=== PATIENT | female | born 1965 | race Caucasian/White ===

== ENCOUNTER → 2017-11-20 | Outpatient (CLI) | payer OTHER | END | disposition home or self-care (01) | LOC: C.RDSM 13:53 | PROVIDERS: ATTEND Physical Medicine & Rehabilitation | DX: M25.561 Pain in right knee (principal) ==

== ENCOUNTER 2019-08-04 04:53 | Inpatient (IN) ==
--- NOTE | 2019-07-09 13:35 | Anesthesiology Consultation ---
Date of Service July 09, 2019 Assessment & Plan (1) Encounter for pre-operative examination: Discussed SAB vs. GA: Per patient, she states she was advised by surgeon office against SAB if possible due to her back issues. Discussed SAB vs. GA and that anesthesia would discuss further AM DOS* Chart Review Chart Review: Acceptable Risk for Surgery (pending surgeon-ordered PCP clearance (Dr. Galvez)) and Patient seen in Pre Admission Testing Teaching & Discussion Pre-Anesthesia Teaching/Discussion Notes: Instructed NPO after midnight before surgery,except medications with 15 cc of water. Medication instructions provided according to the PAT guidelines. History Surgery Operation Date: 08/04/19 10:20 Proposed Procedures p Right Total Knee Arthroplasty - Jose L Zarco MD Height/Weight Height: 5 ft 7 in Weight: 85.8 kg Allergies Allergy/AdvReac Type Severity Reaction Status Date / Time vaccine adjuvant system, AdvReac Severe Flu-like Verified 07/05/19 14:40 [id number] liposomal symptoms [From Shingrix (PF)] varicella-zoster virus AdvReac Severe Flu-like Verified 07/05/19 14:40 glycoprotein E, recombinant symptoms [From Shingrix (PF)] Medications Home Medications Medication Instructions Recorded Confirmed Last Taken hydrocodone-acetaminophen 1 tab PO Q6H PRN 05/28/19 07/05/19 Unknown pregabalin [Lyrica] 200 mg PO TID 05/28/19 07/05/19 Unknown tizanidine 8 mg PO HS 05/28/19 07/05/19 Unknown calcium carbonate-vitamin D3 1 cap PO QAM 07/05/19 07/05/19 Unknown [Calcium 600 + D(3)] gabapentin 400 mg PO TID 07/05/19 07/05/19 Unknown multivitamin 1 tab PO QAM 07/05/19 07/05/19 Unknown vitamin B complex 1 tab PO QAM 07/05/19 07/05/19 Unknown Past Medical History Medical History Herniated disc cervical, thoracic region Anxiety Chronic back pain DJD (degenerative joint disease) Degenerative disc disease Fibromyalgia Neuropathy legs, hands + leg weakness (improving) + difficulty with grasp strength Wheelchair dependence since 04/2019 fall 2/2 knee pain/DDD (reason for upcoming procedure) Exercise / Class Metabolic Activity IV < 2 Limit ADL/Bedbound (primarily wheelchair bound (able to do short distances with walker at PT) since 04/2019 fall/knee pain/DDD/LE neuropathy ) Past Family History Family History Other Family history non-contributory Past Surgical History Surgical History H/O LEEP History of carpal tunnel surgery of right wrist History of tonsillectomy Hx of oral surgery Past Anesthesia History No Hx of Anesthesia Complications and No Family Hx of Anesthesia Complications History of PONV No Hx of PONV and Hx of Motion Sickness (remote hx) Social History Smoking Status: Current every day smoker tobacco type: cigarettes Smoking cigarettes per day: 10 cigarettes/day x 30 years Do You Dip or Chew Tobacco: No Hx Alcohol Use: Yes Alcohol type: wine alcohol intake frequency: a few times a week Hx Substance Use: Yes substance use type: prescription drug (chronic opioid use x 15+ years ) Review of Systems Patient denies chest pain, shortness of breath, cough, wheezing, palpitations. Physical Exam Vital Signs VITALS BP 125/85 P 72 TEMP 98.1 SP02 98%RA RESP 20 PHYSICAL Full neck and c-spine range of motion. Full TMJ range of motion. TMD 2.5 finger breaths Mallampati Score 3 (small oral opening) Dentition: intact, several crowns, upper front veneers Lungs: clear throughout to auscultation Cardiac: regular rate and rhythm, no murmurs noted Spine: normal Carotid arteries: negative bruit Extremities: no edema Short, thick neck Testing Laboratory Results 07/09/19 14:00 07/09/19 14:00 PT 10.3 Seconds (9.0-12.0) 07/09/19 14:00 INR 1.0 (0.9-1.1) 07/09/19 14:00 APTT 23.7 Seconds (21.0-31.0) 07/09/19 14:00 Urine Color Yellow 07/09/19 14:00 Urine Appearance Clear (Clear) 07/09/19 14:00 Urine pH 5.5 (4.5-7.5) 07/09/19 14:00 Ur Specific [place] 1.012 (1.000-1.030) 07/09/19 14:00 Urine Protein Negative (Negative) 07/09/19 14:00 Urine Glucose (UA) Negative (Negative) 07/09/19 14:00 Urine Ketones Negative (Negative) 07/09/19 14:00 Urine Nitrite Negative (Negative) 07/09/19 14:00 Ur Leukocyte Esterase Negative (Negative) 07/09/19 14:00 Urine WBC (Auto) 1-5 /hpf (0-5) 07/09/19 14:00 Urine RBC (Auto) 0-4 /hpf (0-4) 07/09/19 14:00 U Hyaline Cast (Auto) 0 /lpf (0-5) 07/09/19 14:00 U Epithel Cells (Auto) 20-30 /lpf (0-5) H 07/09/19 14:00 Urine Bacteria (Auto) Negative (Negative) 07/09/19 14:00 Blood Type A Negative 07/09/19 14:00 Antibody Screen NEGATIVE 07/09/19 14:00 Electrocardiogram Date: 05/13/19 NSR with sinus arrhythmia at 87bpm. NS STA. Chest X-Ray Date: 07/09/19 The heart is borderline enlarged. There is no failure. There is no focal pulmonary consolidation. There are no pleural effusions. Indistinctness of chronic border remains unchanged the prior study. This is felt to be secondary to a fat pad. No active disease in the chest.
--- NOTE | 2019-07-09 14:25 | XRay Report ---
XR chest Pre-admission PA/Lat CLINICAL HISTORY: Preoperative chest COMPARISON STUDY: 10/29/2019 FINDINGS: The heart is borderline enlarged. There is no failure. There is no focal pulmonary consolid ation. There are no pleural effusions. Indistinctness of chronic border remains unchanged the prior s tudy. This is felt to be secondary to a fat pad.[ IMPRESSION: No active disease in the chest. Electronically signed by: Eligio Naylor M.D. 07/09/2019 2:24 PM
[2019-07-09 16:35] LABS: Basophils # (auto) 0.03 K/uL (0-0.2); Basophils % (auto) 0.4 %; Eosinophils # (auto) 0.25 K/uL (0-0.5); Eosinophils % (auto) 3.3 %; Hematocrit (blood only) 49.5 % (37-47); Immature Granulocytes # (auto) 0.02 K/uL (0.00-0.02); Immature Granulocytes % (auto) 0.3 %; Lymphocytes # (auto) 2.94 K/uL (1.2-3.4); Lymphocytes % (auto) 39.4 %; Mean Corpuscular Hemoglobin 31.3 pg (25-34); Mean Corpuscular Hgb Conc 32.3 g/dL (32-36); Mean Corpuscular Volume 96.9 fL (80-100); Mean Platelet Volume 11.4 fL (7.4-10.4); Monocytes # (auto) 0.35 K/uL (0.11-0.59); Monocytes % (auto) 4.7 %; Neutrophils # (auto) 3.88 K/uL (1.4-6.5); Neutrophils % (auto) 51.9 %; Platelet Count 198 K/uL (130-400); RDW Coefficient of Variation 14.8 % (11.5-14.5); RDW Standard Deviation 51.8 fL (36.4-46.3); Red Blood Count 5.11 M/uL (4.2-5.4); White Blood Count 7.47 K/uL (4.8-10.8)
[2019-07-09 16:38] LABS: Appearance Urine Clear (Clear); Bacteria Urine Automated Negative (Negative); Bilirubin Urine Negative (Negative); Blood Urine Trace (Negative); Cast Urine Automated 0 /lpf (0-5); Color Urine Yellow; Epithelial Cell Urine Auto 20-30 /lpf (0-5); Glucose Urine UA Negative (Negative); Ketones Urine Negative (Negative); Leukocyte Esterase Urine Negative (Negative); Nitrite Urine Negative (Negative); Protein Urine Negative (Negative); RBC Urine Automated 0-4 /hpf (0-4); Specific Gravity Urine 1.012 (1.000-1.030); Urobilinogen Urine Negative (Negative); pH Urine 5.5 (4.5-7.5)
[2019-07-09 16:49] LABS: BUN Creatinine Ratio 11.9 (10-20); Calcium 8.9 mg/dl (8.5-10.1); Creatinine Clr Calc Pharmacy 114.9 ml/min; Est GFR (African American) 117.9; Est GFR (Non-African American) 101.7; Potassium 3.9 mmol/L (3.5-5.1)
[2019-07-09 16:51] LABS: Partial Thromboplastin Ratio 0.9; Partial Thromboplastin Time 23.7 Seconds (21.0-31.0); Prothrombin Time 10.3 Seconds (9.0-12.0)
--- NOTE | 2019-07-12 16:27 | History and Physical Report ---
DATE OF ADMISSION: 08/04/2019 CHIEF COMPLAINT: Right knee pain. HISTORY OF PRESENT ILLNESS: This 53-year-old white female presents to the office with complaints of a longstanding history of right knee pain. It is ongoing for more than a year. Pain has become worse over the last several months. No specific trauma. Worse with weightbearing. It is affecting her ADLs. She has tried activity modification as well as physical therapy and oral pain medication without lasting improvement. She elects to proceed with right total knee arthroplasty in hopes of alleviating her pain. Preoperative imaging has been obtained. She denies any effusions. She does have bilateral lower extremity numbness and tingling as a baseline and states she has been diagnosed with peripheral neuropathy. PAST MEDICAL HISTORY: Significant for chronic back pain, osteoarthritis, chronic pain syndrome, cervical radiculopathy, peripheral neuropathy, history of bronchitis, fibromyalgia, herniated disc, and history of tobacco abuse, hypothyroidism. PAST SURGICAL HISTORY: Tonsillectomy with adenoidectomy, oral surgery, LEEP 1997, right wrist carpal tunnel release 05/18/2019. ALLERGIES: KNOWN ALLERGY TO BENADRYL AND SUDAFED. FAMILY HISTORY: Significant for breast cancer, heart disease and hypertension. Father is . SOCIAL HISTORY: The patient is single. Lives by herself. Positive tobacco use, occasional ETOH use. CURRENT MEDICATIONS: Multivitamin daily, loratadine 10 mg daily, diclofenac gel q.i.d. p.r.n., Os-Francisco 1 tablet p.o. b.i.d., vitamin D3 2000 international units 2 tablets daily, tizanidine 4 mg p.o. t.i.d., gabapentin 400 mg p.o. t.i.d., Vicodin 10/325 mg q.6 hours p.r.n., Xanax 0.25 mg p.o. t.i.d., Lyrica 200 mg p.o. t.i.d., albuterol inhaler 2 puffs q.4 hours p.r.n., hydroquinone 4% topical cream b.i.d. p.r.n., lidocaine 5% patches daily, Synthroid 25 mcg p.o. daily. REVIEW OF SYSTEMS: A total of 10 systems are reviewed and are significant only for above stated conditions. PHYSICAL EXAMINATION: GENERAL: Well-developed, well-nourished middle aged white female in no acute distress. Sitting in a wheelchair. VITAL SIGNS: Weight 86.3, BP 136/76, pulse 81, O2 sat 94% on room air, temperature 36.6 oral. SKIN: Warm and dry with good turgor. No rashes or lesions noted. Hands are a bit dirty today. No ecchymosis or erythema. No intraarticular effusion. HEENT: Normocephalic, atraumatic. Eyes PERRLA, EOMI. Nares patent bilaterally without turbinate enlargement. Oropharynx without erythema or exudate. No lesions noted. Uvula midline. Oral mucosa moist. Fair dentition. Dental caps and fillings are noted. HEART: RRR. No MGR. LUNGS: Clear to auscultation bilaterally. No crackles, rhonchi or wheezing. Good air movement. ABDOMEN: Obese. Bowel sounds present x4, soft, nontender. No organomegaly. No masses. MUSCULOSKELETAL: Right knee evaluation reveals no intra-articular effusion. Full terminal extension. Flexion to greater than 100 degrees. Strength is 5/5 with fair quad tone. She has focal discomfort with palpation over the medial and lateral joint lines. No palpable crepitus. Stable collateral ligaments. No defect in the patellar tendon or quadriceps tendon. The patient has pain with standing. NEUROLOGIC: Decreased subjective sensation with light touch across both lower extremities. Sensation is intact, however. Cranial nerves II-XII are intact. Peripheral pulses are 2+. DATA: Radiographic imaging previously obtained shows significant DJD of both knees, right greater than left. Joint space narrowing, periarticular osteophytes, and subchondral sclerosis are all present. IMPRESSION: Right knee degenerative joint disease. PLAN: Postoperative prescriptions for Percocet and Coumadin will be provided at discharge from the hospital. Anticipate discharge to either [facility] or [facility] facility, given her care needs and that she lives alone. The patient already has a walker and cane. She also has a wheelchair. Preoperative lab work, and chest x-ray were ordered today. EKG should be up to date from her previous wrist surgery. She will obtain medical clearance from Dr. Galvez. [facility]US[facility]
[~2019-08-04 04:53] MED LIST: CEFAZOLIN 2000MG 2,000 MG/15 ML SYR IV SCH; LACTATED RINGER'S 1,000 ML IV SCH
[2019-08-04] MEDS ORDERED: LR 60ML/HR IV SCH (06:00)
[2019-08-04] MEDS ORDERED: LR 500ML BOLUS, THEN 15ML/HR IV SCH (06:00)
[2019-08-04] MEDS ORDERED: CEFAZOLIN 2000MG 2,000 MG/15 ML SYR IV SCH (06:00)
[2019-08-04] MEDS ORDERED: TRANEXAMIC ACID 1,000 MG **IV Pre-op IV SCH (06:00)
[2019-08-04] MEDS ORDERED: ROPIVACAINE 0.5% HCL/PF 150 MG, BUPIVACAINE 0.5% MPF 30 ML, EPINEPHrine 0.15 MG, Ketoro... INFIL SCH (06:00)
[2019-08-04 06:01] LABS: Pregnancy Test, Serum Negative (Negative)
[2019-08-04] MEDS ORDERED: BUPIVACAINE 0.5 % 5 MG/1 ML PF 10ML VIAL ONE (06:31)
[2019-08-04] MEDS ORDERED: ROPIVACAINE 0.5% 5 MG/ML 30 ML VIAL ONE (06:31)
[2019-08-04] MEDS ORDERED: ORTHO JOINT ANESTHETIC ONE (06:32)
--- NOTE | 2019-08-04 06:35 | History & Physical Bridge Note ---
Date of Service August 04, 2019 History & Physical Bridge Note I have examined the patient, reviewed the History & Physical and in the interval since the performance of the History & Physical I have noted the following changes of clinical significance:consent obtained. no changes noted
[2019-08-04] MEDS ORDERED: fentaNYL citrate 100 MCG/2 ML VIAL ONE ×2 (06:40→06:47)
[2019-08-04] MEDS ORDERED: MIDAZOLAM HCL 1 MG/ML 2ML VIAL ONE ×2 (06:40→06:41)
[2019-08-04] MEDS ORDERED: LABETALOL HCL IV 5 MG/ML 20ML IV PRN (07:08)
[2019-08-04] MEDS ORDERED: PROMETHAZINE HCL 12.5 MG in SODIUM CHLORIDE 0.9% 50 ML IV PRN (07:08)
[2019-08-04] MEDS ORDERED: ONDANSETRON INJ 2 MG/ML 2 ML VIAL IV PRN ×2 (07:08→10:06)
[2019-08-04] MEDS ORDERED: ATROPINE SULFATE 0.1 MG/ML 10ML SYR IV PRN (07:08)
[2019-08-04] MEDS ORDERED: KETOROLAC 30 MG/ML VIAL IV PRN (07:08)
[2019-08-04] MEDS ORDERED: HYDROmorphone INJ 2 MG/ML SYR/VIAL ONE (07:14)
[2019-08-04] MEDS ORDERED: KETAMINE HCL INJ 50 MG/ML 10 ML VIAL ONE (07:24)
[2019-08-04] MEDS ORDERED: LIDOCAINE HCL 2% 2 ML VIAL/AMP(20MG/ML) INFIL ONE (07:41)
[2019-08-04] MEDS ORDERED: PROPOFOL IV EMULSION 10 MG/ML 20 ML VIAL IV ONE (07:41)
[2019-08-04] MEDS ORDERED: KETOROLAC 30 MG/ML VIAL ONE (07:41)
[2019-08-04] MEDS ORDERED: ROCURONIUM BROMIDE 10 MG/ML 5 ML VIAL ONE (07:41)
[2019-08-04] MEDS ORDERED: NEOSTIGMINE METHYLSULFATE 5 MG/5 ML SYR ONE (07:42)
[2019-08-04] MEDS ORDERED: GLYCOPYRROLATE 0.2 MG/ML VIAL ONE (07:42)
--- NOTE | 2019-08-04 08:15 | Post Operative Brief Note ---
Immediate Post Op Note v1 Date of Surgery August 04, 2019 Pre & Post Diagnosis Operation Date: 08/04/19 07:00 Pre-Op Diagnosis: Right Knee Degenerative Joint Disease Post-Op Diagnosis: Right Knee Degenerative Joint Disease Procedure Operation Date: 08/04/19 07:00 Actual Procedures p Right Total Knee Arthroplasty(Right) - Jsoe L Zarco MD Surgeon Jose L Zarco MD Telephone Order Clerk charisse/sis Estimated Blood Loss 25 Findings Consistent with Post-Op Diagnosis
--- NOTE | 2019-08-04 08:26 | Operative Report ---
Post Operative Report Pre & Post Diagnosis Operation Date: 08/04/19 07:00 Pre-Op Diagnosis: Right Knee Degenerative Joint Disease Post-Op Diagnosis: Right Knee Degenerative Joint Disease Procedure Operation Date: 08/04/19 07:00 Actual Procedures Right Total Knee Arthroplasty(Right) - Jose L Zarco MD Surgeon SHAWN Zarco MD Goal Umpire charisse/sis Estimated Blood Loss 25 Findings Consistent with Post-Op Diagnosis Specimens see operative report Drains none Complications none Disposition Accompanied Patient To Recovery: Yes Disposition: Recovery Room Indications This 53-year-old white female presented to the office with complaints of intractable right knee pain. She had tried conservative care measures including activity modification and oral pain medication without lasting improvement. Preoperative imaging was obtained that showed avascular necrosis. She elected to proceed with surgical intervention after being educated about potential risks and outcomes. Description of Procedure Patient was taken to the operating room where she was given general anesthesia. She was prepped and draped in the usual sterile fashion. Please see Dr. Zarco's operative report for specifics of the procedure. I was present for the entire case from initial patient positioning through final wound closure. Assistance was provided in tissue retraction, hemostasis, trial implant placement, final implant placement, and final wound closure. Patient was taken to the recovery room in satisfactory condition. I attest to the content of the Intraoperative Record and any orders documented therein. Any exceptions are noted below.
--- NOTE | 2019-08-04 08:30 | Operative Report ---
Post Operative Report Pre & Post Diagnosis Operation Date: 08/04/19 07:00 Pre-Op Diagnosis: Right Knee Degenerative Joint Disease Post-Op Diagnosis: Right Knee Degenerative Joint Disease Procedure Operation Date: 08/04/19 07:00 Actual Procedures p Right Total Knee Arthroplasty(Right) - Jose L Zarco MD Surgeon Jose L Zarco MD Supervisor [employer] charisse/sis Estimated Blood Loss 25 Findings Consistent with Post-Op Diagnosis Specimens As per the procedure notes Complications none Disposition Accompanied Patient To Recovery: Yes Disposition: Recovery Room Indications 53 years pleasant woman with end-stage right knee arthritis and avascular necrosis Description of Procedure Supine position. Standard prep and drape. Tourniquet control. Timeout for patient safety. Right total knee arthroplasty. Please see Dr. Zarco's procedure notes for specific details. I was present throughout the case assisted for wound closure and transfer the patient to PACU in stable condition. I attest to the content of the Intraoperative Record and any orders documented therein. Any exceptions are noted below.
--- NOTE | 2019-08-04 08:44 | Operative Report ---
DATE OF OPERATION: 08/04/2019 SURGEON: Jose L Zarco MD. ASSISTANTS: Apoorva and Juan Francisco Chan PA-C. PREOPERATIVE DIAGNOSES: Osteoarthritis, right knee, with avascular necrosis of femur and tibia. POSTOPERATIVE DIAGNOSES: Osteoarthritis, right knee, with avascular necrosis of femur and tibia. OPERATION PERFORMED: Cemented right total knee replacement. PERIOPERATIVE SITUATION: Medically cleared female with multiple comorbidities who was cleared for surgery. She has bilateral knee AVN and bilateral severe patellofemoral arthropathy, wished to proceed with knee replacement. She elected to do the right first. She understands the risk and consequences prior to consent. DESCRIPTION OF PROCEDURE: The patient was appropriately identified, site verified, consent verified. Antibiotics confirmed as being given. The right lower extremity was prepped and draped in usual routine fashion. Midline exposure of the right knee was performed. A parapatellar arthrotomy performed. Synovectomy completed. The patellofemoral joint was grade 4. The knee was flexed. Soft tissue excised. The patella was everted easily. There was a large vertical delamination of articular cartilage of the weightbearing surface of the lateral femoral condyle. Cruciates resected. Menisci resected. Tibia subluxated. Distal femur resected 14 mm. There was a significant AVN noted in the lateral femoral condyle. Proximal tibia resected 4 mm. There was a significant AVN of the tibial plateau medially. The femur was sized to between 3 and 2, was measured 3 and cut 2.5. The tibia was measured to a size 2, the flexion gap and extension gap were excellent. A box cut was then made. The size 2.5 fit well. Tibia was then broached and reamed to a size 2 and a trial spacer with 10 and 12.5 were trialed and the 10 did not eliminate any extension and did not lose any mid range flexion stability. The alignment of the limb was excellent. The patella was resected leaving 15 mm and a size 35 button fit well. Patella tracked well. The knee was then injected with Orthomix both posteriorly and around the knee joint. All trial elements were then removed. The knee was irrigated with Betadine and Pulsavac and then the permanent cemented into position in the following sequence of tibia, femur and patella. After 12 minutes, the tourniquet was deflated. After 14 minutes, the knee was flexed. No cement removal was required. The knee was irrigated with Betadine Pulsavac, permanent liner seated and then the knee closed at 50 degrees of flexion with #2 Vicryl, #1 Vicryl, 2-0 plain and stainless steel clips. Appropriate dressing applied. ESTIMATED BLOOD LOSS: 25 mL. CRYSTALLOID: Per anesthesia. PATHOLOGY: Pending on bone. DEEP VENOUS THROMBOSIS PROPHYLAXIS: With protocol. SUMMARY OF IMPLANTS: Size 2.5 right femur, posterior cruciate substituting size 2 mobile bearing tray tibia, size 2.5 insert x10 PCL substituting matching the femur. Oval domed 3 pegged patella size 35 and 2 bags of Palacos G cement. I attest to the content of the Intraoperative Record and any orders documented therein. Any exception s are noted below.
[2019-08-04] MEDS: HYDROmorphone INJ 1 MG/ML SYRINGE IV PRN ×8 (08:45→09:20)
[2019-08-04] MEDS ORDERED: HYDROmorphone INJ 1 MG/ML SYRINGE ONE (09:09)
--- NOTE | 2019-08-04 09:21 | XRay Report ---
XR knee RT 2V routine CLINICAL HISTORY: Postop examination. Degenerative arthritis. COMPARISON: December 2018 DISCUSSION: There are postsurgical changes of a total right knee arthroplasty and patellar resurfacin g. The femoral and tibial components appear well seated. Overlying skin michael are evident. There is air within the soft tissues consistent with recent surgery. IMPRESSION: Postsurgical changes of a total right knee arthroplasty. Electronically signed by: Eligio Naylor M.D. 08/04/2019 9:20 AM
[2019-08-04] MEDS ORDERED: MAGNESIUM HYDROXIDE SUSP 30 ML UDC PO PRN (10:06)
[2019-08-04] MEDS ORDERED: BISACODYL 10 MG SUPP PR PRN (10:06)
[2019-08-04] MEDS ORDERED: METOCLOPRAMIDE HCL INJ 5 MG/ML 2 ML VIAL IV PRN (10:06)
[2019-08-04] MEDS ORDERED: NALOXONE HCL 0.4 MG/1 ML VIAL/CARP IV PRN (10:06)
[2019-08-04] MEDS ORDERED: HYDROmorphone INJ 0.5 MG/0.5 ML SYR IV PRN (10:06)
[2019-08-04] MEDS ORDERED: ALUMINUM/MAGNESIUM SUSP 30 ML UDC PO PRN (10:06)
[2019-08-04] MEDS ORDERED: DiphenhydrAMINE HCL 50 MG/ML VIAL IV PRN (10:06)
--- NOTE | 2019-08-04 10:06 | Anesthesiology Progress Note ---
Date of Service August 04, 2019 Anesthesia Post Procedure Vital Signs Vital Signs: Temp Pulse Pulse Resp BP Pulse Ox 08/04/19 09:30 89 19 137/79 97 08/04/19 09:20 92 H 20 109/93 95 08/04/19 09:10 92 H 16 157/98 H 94 08/04/19 08:55 97 H 16 167/88 H 93 08/04/19 08:45 101 H 16 168/93 H 94 08/04/19 08:35 99 H 16 162/92 H 95 08/04/19 08:27 36.2 C L 109 H 16 158/101 H 95 08/04/19 05:42 36.9 C 99 H 20 143/88 H 95 Pain Intensity Right Knee: Pain Intensity: 7 Transfer of Care Handoff Completed per policy Notes Mental Status: alert / awake / arousable Patient Amnestic to Procedure: Yes Nausea / Vomiting: adequately controlled Pain: adequately controlled Airway Patency, RR, SpO2: stable & adequate BP & HR: stable & adequate Hydration State: stable & adequate Anesthetic Complications: no major complications apparent
[2019-08-04] MEDS ORDERED: SODIUM CHLORIDE 0.9% 1000ML 1,000 ML IV SCH (10:30)
[2019-08-04] MEDS: NICOTINE 14 MG/24 HR PATCH TD SCH (11:23)
--- NOTE | 2019-08-04 12:20 | Progress Note ---
DATE: 08/04/2019 Postop check status post right total knee replacement. The patient is resting comfortably in bed, was sleeping when I walked in the room. She denies any chest pain, shortness of breath, fever, chills, nausea, vomiting or headache. Vital signs are stable. She is afebrile. Neurovascular check of both lower extremities is baseline. She has sensory neuropathy. Has good motor function. Wound dressing is clean, dry and intact. Postop x-rays look excellent. ASSESSMENT: Overall, doing well. Continue postoperative care pathway. Follow up for potential discharge tomorrow to a facility. She states she wants to go to [facility]. Discussed with Nori in case management. She will see her today.
[2019-08-04] MEDS: OXYCODONE HCL IR 5 MG TAB (IMMEDIATE RELEASE) PO PRN (12:56)
[2019-08-04] MEDS: KETOROLAC 30 MG/ML VIAL IV SCH ×3 (12:57→23:13)
[2019-08-04] MEDS: DOCUSATE SODIUM 100 MG CAP PO SCH ×2 (12:57→22:09)
[2019-08-04] MEDS: GABAPENTIN 400 MG CAP PO SCH ×3 (12:57→21:47)
[2019-08-04] MEDS: MULTIVITAMIN TAB PO SCH (12:58)
--- NOTE | 2019-08-04 13:55 | Discharge Summary ---
CHIEF COMPLAINT: Right knee pain. HISTORY OF PRESENT ILLNESS: The patient underwent elective right total knee replacement. She has a lot of complex issues including social issues. She has also involved in her left lower extremity. She recently had some inpatient stay at [facility] for falling based on neuropathy. With a recent knee replacement, she needs to be considered for that. Her hospital course has been uneventful with respect to the knee replacement. PAST MEDICAL HISTORY: Remarkable for chronic back pain, osteoarthritis, chronic pain syndrome, cervical radiculopathy, peripheral neuropathy, bronchitis, fibromyalgia, tobacco abuse, hypothyroidism. PAST SURGICAL HISTORY: Remarkable for tonsillectomy, oral surgery, LEEP, carpal tunnel release. ALLERGIES: BENADRYL AND SUDAFED. FAMILY HISTORY: Remarkable for breast cancer, heart disease and hypertension. Father is . SOCIAL HISTORY: Reveals that she is single, lives by herself, and uses alcohol and tobacco. PREADMISSION MEDICATIONS: Include multivitamin, loratadine, diclofenac gel, Os-Francisco, vitamin D, tizanidine, gabapentin, Vicodin, Xanax, Lyrica, albuterol inhaler, hydroquinone topical cream, lidocaine patches and Synthroid. She has also been discharged on Coumadin, keep INR 1.8-2.2. P.r.n. pain medication. REVIEW OF SYSTEMS: Noncontributory. HOSPITAL COURSE: Has been uneventful. Her postoperative x-rays look excellent. Her neurovascular check is at baseline. She should be mobilized. She should see case management and get prepared for potential discharge/transfer tomorrow.
[2019-08-04] MEDS: ACETAMINOPHEN 500 MG TAB PO SCH ×2 (13:58→22:11)
[2019-08-04] MEDS ORDERED: ORTHO WARFARIN NOMOGRAM SCH (14:00)
[2019-08-04] MEDS ORDERED: TRANEXAMIC ACID 1,000 MG in 0.9 % SODIUM CHLORIDE 100 ML IV SCH (14:30)
[2019-08-04] MEDS: CEFAZOLIN 2000MG 2,000 MG/15 ML SYR IV SCH ×2 (14:32→23:13)
[2019-08-04] MEDS ORDERED: WARFARIN SOD 5 MG TAB PO SCH (16:00)
[2019-08-04] MEDS: FERROUS GLUCONATE 324 MG TAB PO SCH (17:25)
[2019-08-04] MEDS: ASCORBIC ACID 500 MG TAB PO SCH (17:25)
[2019-08-04] MEDS ORDERED: COUGH DROP (SUGAR FREE) LOZ 24 LOZ/1 BOX BUCCAL ONE (19:33)
[2019-08-04] MEDS ORDERED: SENNA 8.6 MG TAB PO SCH (21:00)
[2019-08-04] MEDS ORDERED: TIZANIDINE HCL 4 MG TABLET PO SCH (21:00)
[2019-08-04] MEDS ORDERED: NORTRIPTYLINE HCL 10 MG CAP PO SCH (21:45)
[2019-08-04] MEDS: GABAPENTIN 600 MG TAB PO SCH (22:09)
[2019-08-05] MEDS: KETOROLAC 30 MG/ML VIAL IV SCH (06:20)
[2019-08-05] MEDS: ACETAMINOPHEN 500 MG TAB PO SCH (06:20)
[2019-08-05 06:40] LABS: Hematocrit (blood only) 46.8 % (37-47); Hemoglobin 15.1 g/dL (12.0-16.0); Mean Corpuscular Hemoglobin 30.9 pg (25-34); Mean Corpuscular Hgb Conc 32.3 g/dL (32-36); Mean Corpuscular Volume 95.9 fL (80-100); Platelet Count 226 K/uL (130-400); RDW Coefficient of Variation 13.8 % (11.5-14.5); RDW Standard Deviation 47.8 fL (36.4-46.3); Red Blood Count 4.88 M/uL (4.2-5.4); White Blood Count 17.48 K/uL (4.8-10.8)
[2019-08-05 06:47] LABS: Prothrombin Time 10.3 Seconds (9.0-12.0)
[2019-08-05 07:08] LABS: BUN Creatinine Ratio 10.1 (10-20); Calcium 8.8 mg/dl (8.5-10.1); Est GFR (Non-African American) 72.5; Potassium 4.7 mmol/L (3.5-5.1)
[2019-08-05] MEDS: GABAPENTIN 600 MG TAB PO SCH (07:50)
[2019-08-05] MEDS: ASCORBIC ACID 500 MG TAB PO SCH (07:51)
[2019-08-05] MEDS: NICOTINE 14 MG/24 HR PATCH TD SCH (07:51)
[2019-08-05] MEDS: MULTIVITAMIN TAB PO SCH (07:51)
[2019-08-05] MEDS: FERROUS GLUCONATE 324 MG TAB PO SCH (07:51)
[2019-08-05] MEDS: DOCUSATE SODIUM 100 MG CAP PO SCH (07:51)
[2019-08-05] MEDS: OXYCODONE HCL IR 5 MG TAB (IMMEDIATE RELEASE) PO PRN (07:56)
[2019-08-05] MEDS ORDERED: dexAMETHasone 10 MG in SYRINGE 0 ML IV SCH (08:00)
--- NOTE | 2019-08-05 08:37 | Progress Note ---
DATE: 08/05/2019 SUBJECTIVE: Postop day #1 status post right total knee replacement. The patient is doing well. Denies any chest pain, shortness of breath, fever, chills, nausea, vomiting or headache. OBJECTIVE: Vital signs are stable. He is afebrile. Neurovascular check femoral sciatic nerve is normal. Wound dressing clean, dry and intact. Calves nontender. A.m. labs are pending. Case management is getting her ready for transfer to [facility]. ASSESSMENT: Doing well. PLAN: Discharge/transfer to [facility] today. Coumadin per nomogram. Keep INR 1.8-2.2.
[2019-08-05] MEDS ORDERED: NORTRIPTYLINE HCL 10 MG CAP PO SCH (09:00)
--- NOTE | 2019-08-05 09:09 | Orthopedic Progress Note ---
Date of Service August 05, 2019 Assessment & Plan (1) Status post total knee replacement, right: Patient's dressings were changed by me this morning. Wound looks good. She will be discharged to [facility] later this morning. She is working with OT currently. PT to follow. Continue with ice, elevation, and compression. Max flexion 90 degrees. Follow-up with me in the office in 2 weeks as scheduled for staple removal. Call the office with any other concerns. Subjective Patient is seen in her room this morning. She states she is doing well. She did have some knee pain, but states this is not unexpected. It is tolerable. S he has been out of bed and was able to get herself to the bathroom with some assistance. She states she is ambulating better now than she did prior to surgery. No chest pain or shortness of breath. No abdominal pain. No other complaints. She is leaving for [facility] later this morning. Review of Systems Review of Systems: Other Unchanged from preop Physical Exam Physical Exam: General: Well-developed, well-nourished, middle-aged white female, in no acute distress. Sitting in her bed. Alert and oriented. Skin: Postoperative knee dressings are dry and intact. Upon removal, she has no active drainage. Expected postoperative edema and ecchymosis. Mireya are intact. Wound edges are well approximated. Musculoskeletal: She has intact motor function to the right knee, ankle, and toes. She is able to perform a straight leg raise with some assistance. Neurologic: Gross sensation is intact across the right leg by soft touch. Peripheral pulses are 2+. Results & Data Vital Signs (Past 12 Hours) Vital Signs Temp Pulse Resp BP Pulse Ox 08/05/19 07:18 36.7 C 76 16 127/85 95 08/05/19 03:05 36.8 C 80 16 146/92 H 96 08/04/19 23:00 36.7 C 89 18 148/88 H 91
--- NOTE | 2019-08-05 10:02 | Anesthesiology Progress Note ---
Date of Service August 05, 2019 Anesthesia Post Procedure Vital Signs Vital Signs: Temp Pulse Resp BP BP Pulse Ox 08/05/19 09:22 36.7 C 76 16 127/85 149/94 H 95 08/05/19 07:18 36.7 C 76 16 127/85 95 08/05/19 03:05 36.8 C 80 16 146/92 H 96 08/04/19 23:00 36.7 C 89 18 148/88 H 91 08/04/19 20:02 36.9 C 93 H 16 149/94 H 94 08/04/19 15:12 36.4 C L 96 H 16 146/91 H 95 08/04/19 13:00 97 H 16 154/91 H 93 08/04/19 12:00 100 H 18 157/91 H 95 08/04/19 11:03 95 H 16 161/91 H 96 08/04/19 10:32 86 15 147/89 H 96 Notes Mental Status: alert / awake / arousable and participated in evaluation Nausea / Vomiting: adequately controlled Pain: adequately controlled Airway Patency, RR, SpO2: stable & adequate BP & HR: stable & adequate Hydration State: stable & adequate
== END 2019-08-05 11:00 | DRG 470 ==
LOC: ASU 04:53 → 3E 08:35